=== PATIENT | male | born 1990 | race Caucasian/White ===

== ENCOUNTER 2016-07-23 02:11 | Emergency (ER) | payer MEDICAID ==
[~2016-07-23] VITALS: Ht 180.3 cm; Wt 74.8 kg
[2016-07-23] MEDS ORDERED: NKM (02:20)
[2016-07-23] MEDS ORDERED: AUGMENTIN 875-1 EAC1 ORAL (02:51)
[2016-07-23] MEDS ORDERED: CORTISPORIN EAR10 ML OTIC (02:52)
[2016-07-23] MEDS ORDERED: IBUPROFEN600 MG ORAL (02:52)
[2016-07-23 03:00] VITALS: BP 123/81
--- NOTE | 2016-07-23 03:15 | Emergency Room Report ---
History of Present Illness General Chief Complaint: Earache Source: Patient Present Illness HPI Patient presents with complaints of left-sided ear pain Ongoing for the past several days Patient reports a virus last week with fevers and chills now increased pain denies any discharge Patient did use a Q-tip last week in the ear Also reports problems as a child with tubes in his ears Denies any posterior neck pain denies any fevers or rash Allergies: Coded Allergies: No Known Allergies (Unverified , 07/23/16) Patient History Past Medical History: see triage record Pertinent Family History: none Reviewed Nursing Documentation: PMH: Agreed, PSxH: Agreed Nursing Documentation-PMH Past Medical History: No Stated History Review of Systems All Other Systems: negative except mentioned in HPI Physical Exam Vital Signs Date Time Temp Pulse Resp B/P Pulse Ox O2 Delivery O2 Flow Rate FiO2 07/23/16 02:17 98.4 72 14 122/74 97 Room Air Sp02 EP Interpretation: reviewed, normal General Appearance: well appearing, no apparent distress Head: normocephalic, atraumatic Eyes: bilateral eye EOMI, bilateral eye PERRL ENT: other - Left ear canal is edematous and irritated, tympanic membranes also bulging and erythematous Neck: supple Respiratory: lungs clear Cardiovascular #1: regular rate, rhythm Gastrointestinal: soft Musculoskeletal: normal inspection Neurologic: alert, oriented x3, responsive Skin: no rash Medical Decision Making Diagnostic Impression: Primary Impression: otitis media Additional Impression: otitis externa ER Course Mastoid nontender Patient's clinical exam is in line with otitis media And also findings of otitis externa Patient treated appropriately and will have close outpatient followup Last Vital Signs Date Time Temp Pulse Resp B/P Pulse Ox O2 Delivery O2 Flow Rate FiO2 07/23/16 03:00 98.3 81 18 123/81 97 Room Air Status: unchanged Disposition: HOME, SELF-CARE Condition: Stable Scripts Ibuprofen* (MOTRIN*) 600 Mg Tablet 600 MG ORAL Q8H Y for For Pain, #30 TAB 0 Refills Prov: JT NEVES D.O. 07/23/16 Neomycin/Polymyxin B Sulf/Hc* (CORTISPORIN EAR SOLUTION*) 10 Ml Solution 2 DROP OTIC FOUR TIMES A DAY for 7 Days, #1 EA Instill in affected ear as directed for 7 days Prov: JT NEVES D.O. 07/23/16 Amoxicillin/Potassium Clav 875-125* (AUGMENTIN 875-125 TABLET*) 1 Each Tablet 1 TAB ORAL TWICE A DAY, #10 TAB Prov: JT NEVES D.O. 07/23/16 Referrals: [facility]ERR[facility] (PCP) Patient Instructions: Otitis Media, Adult, [id number], Otitis Externa, Easy- to-Read Additional Instructions: Patient is provided with the discharge instructions notified to follow up with primary doctor in the next 2-3 days otherwise return to the er with any worsening symptoms. Please note that this report is being documented using [employer] technology. This can lead to erroneous entry secondary to incorrect interpretation by the dictating instrument. JT NEVES D.O. Jul 23, 2016 03:15
== END 2016-07-23 03:00 | disposition home or self-care (01) ==
LOC: EMR 02:44
DX: H66.92 Otitis media, unspecified, left ear (principal); H60.92 Unspecified otitis externa, left ear
CPT/HCPCS: 99284